=== PATIENT | female | born 1965 | race Caucasian/White ===

== ENCOUNTER → 2016-10-24 | Outpatient (CLI) | payer OTHER | END | disposition home or self-care (01) | LOC: MA 09:13 | PROC: BH02ZZZ Plain Radiography of Bilateral Breasts (ICD-10-PCS; principal; 2016-10-24) | DX: Z12.31 Encounter for screening mammogram for malignant neoplasm of breast (principal) | CPT/HCPCS: G0202 ==

== ENCOUNTER → 2017-01-16 | Outpatient (CLI) | payer OTHER | END | disposition home or self-care (01) | LOC: MI 09:00 | PROC: BR37ZZZ Magnetic Resonance Imaging (MRI) of Thoracic Spine (ICD-10-PCS; principal; 2017-01-16) | PROC: BR30ZZZ Magnetic Resonance Imaging (MRI) of Cervical Spine (ICD-10-PCS; 2017-01-16) | DX: M25.512 Pain in left shoulder (principal); C90.01 Multiple myeloma in remission; C90.00 Multiple myeloma not having achieved remission; E87.6 Hypokalemia; M54.2 Cervicalgia; Z79.83 Long term (current) use of bisphosphonates | CPT/HCPCS: A9579 ==

== ENCOUNTER 2018-02-23 06:35 | Emergency (ER) | payer OTHER ==
[~2018-02-23] VITALS: Ht 160 cm; Wt 110.7 kg
[2018-02-23 07:00] VITALS: Ht 160 cm; Wt 110.7 kg
[2018-02-23 08:25] VITALS: BP 131/71
== END 2018-02-23 08:25 | disposition home or self-care (01) ==
LOC: ED 06:35
DX: S80.01XA Contusion of right knee, initial encounter (principal); W01.0XXA Fall on same level from slipping, tripping and stumbling without subsequent striking against object, initial encounter; Y93.89 Activity, other specified; Y92.89 Other specified places as the place of occurrence of the external cause; Y99.8 Other external cause status

== ENCOUNTER → 2018-05-06 | Outpatient (CLI) | payer OTHER | END | disposition home or self-care (01) | LOC: MA 12:48 | PROC: BH02ZZZ Plain Radiography of Bilateral Breasts (ICD-10-PCS; principal; 2018-05-06) | DX: Z12.31 Encounter for screening mammogram for malignant neoplasm of breast (principal) | CPT/HCPCS: 77067 ==